=== PATIENT | male | born 1970 | race Caucasian/White ===

== ENCOUNTER 2017-04-22 14:48 | Emergency (ER) | payer OTHER ==
[~2017-04-22] VITALS: Ht 175.3 cm; Wt 114.0 kg
[~2017-04-22 14:48] MED LIST: HYDROCODON-ACE1 EAC9 PO; LISINOPRIL10 MG PO; NORCO 5/3251 TABLET PO; PRILOSEC OTC20 MG PO
[2017-04-22 16:01] LABS: HEMATOCRIT 48.9 % (38.0-50.0); MCHC 33.5 G/DL (30.0-36.0); MCV 83.6 FL (86-99); MEAN PLAT.VOLUME 9.8 uM^3 (9.0-12.4); PLATELET COUNT 270 K/uL (156-360); RBC DIS.WIDTH-CV 12.6 % (11.8-14.6); RBC DIS.WIDTH-SD 38.6 % (39-53); RED BLOOD COUNT 5.85 M/uL (4.00-5.50); WHITE BLOOD COUNT 7.7 K/uL (4.1-10.2)
[2017-04-22 16:08] LABS: CHLORIDE 104 mEq/L (99-109); POTASSIUM 4.2 mEq/L (3.7-5.4); SODIUM 142 mEq/L (136-147)
[2017-04-22 16:10] LABS: GLUCOSE 98 mg/dL (70-99)
[2017-04-22 16:11] LABS: ANION GAP 14 MEQ/L (2-14)
[2017-04-22 16:14] LABS: GFR ESTIMATE (CALCULATED) > 59 mL/min/; UREA NITROGEN (BUN) 11 mg/dL (9-23)
[2017-04-22 16:18] LABS: TROP-I INTERPRETATION NEGATIVE; TROPONIN-I < 0.01 ng/mL (0.0-0.30)
[2017-04-22 17:19] LABS: D-DIMER ELISA < 150.00 ng/mLDDU (<230)
[2017-04-22 18:38] LABS: TROP-I INTERPRETATION NEGATIVE; TROPONIN-I < 0.01 ng/mL (0.0-0.30)
[2017-04-22] MEDS ORDERED: SKELAXIN800 MG PO (19:44)
[2017-04-22] MEDS ORDERED: NAPROSYN500 MG PO (19:44)
[2017-04-22 20:01] VITALS: BP 114/94
== END 2017-04-22 20:02 | disposition home or self-care (01) ==
LOC: EME 14:48
PROVIDERS: Physician Assistant
DX: R07.81 Pleurodynia (principal); R51 Headache; R42 Dizziness and giddiness; I10 Essential (primary) hypertension; Z87.891 Personal history of nicotine dependence
CPT/HCPCS: 71020; 80048; 84484; 85027; 85379; 93005; 99281; 99284

== ENCOUNTER 2018-02-06 18:09 | Emergency (ER) | payer OTHER ==
[~2018-02-06] VITALS: Ht 172.7 cm; Wt 120.2 kg
[~2018-02-06 18:09] MED LIST changes: +NAPROSYN500 MG PO; +SKELAXIN800 MG PO
[2018-02-06] MEDS ORDERED: PERCOCET 10/1 TABLET PO (22:01)
[2018-02-06] MEDS ORDERED: ROBAXIN750 MG PO (22:01)
[2018-02-06] MEDS ORDERED: MOTRIN600 MG PO (22:02)
[2018-02-06 22:14] VITALS: BP 136/100
== END 2018-02-06 22:14 | disposition home or self-care (01) ==
LOC: EME 18:09
DX: M51.26 Other intervertebral disc displacement, lumbar region (principal); M48.061 Spinal stenosis, lumbar region without neurogenic claudication; G89.29 Other chronic pain; I10 Essential (primary) hypertension; K21.9 Gastro-esophageal reflux disease without esophagitis; Z87.891 Personal history of nicotine dependence; Z88.0 Allergy status to penicillin
CPT/HCPCS: 99281; 99284; J1885; J3010